=== PATIENT | female | born 1990 | race Caucasian/White ===

== ENCOUNTER 2017-01-03 20:03 | Emergency (ER) | payer OTHER ==
[~2017-01-03] VITALS: Ht 170.1 cm; Wt 68.0 kg
[2017-01-03] MEDS ORDERED: IBU800 MG PO (20:40)
[2017-01-03] MEDS ORDERED: PENICILLIN250 MG PO (20:40)
[2017-01-03] MEDS ORDERED: TYLENOL WITH CO1 TA1 PO (20:51)
== END 2017-01-03 20:57 | disposition home or self-care (01) ==
LOC: ED 20:03
DX: K08.89 Other specified disorders of teeth and supporting structures (principal); F17.200 Nicotine dependence, unspecified, uncomplicated